=== PATIENT | male | born 2000 | race Caucasian/White ===

== ENCOUNTER 2018-03-22 18:02 | Emergency (ER) | payer OTHER ==
--- NOTE | 2018-03-22 18:06 | PDOC ---
History of Present Illness - General History Source: Patient Exam Limitations: No Limitations - History of Present Illness Initial Comments: 03/22/18 18:38 The patient is a 17 year old male with no significant past medical history who presents to the ED with right knee injury after playing basketball an hour and a half ago. He states he jumped in the air and landed with all of his weight onto his right leg, causing it to twist. Since then his knee has been jammed and stuck in a bent position with pain upon ambulation or movement. The patient states this has occurred a few times in the past where he can unlock his knee by stretching, but this time it has remained stuck. He denies any loss of sensation or tingling. Denies any fever or chills. <Ban Guajardo - Last Filed: 03/22/18 18:38> <Isaiah Novoa - Last Filed: 03/22/18 18:52> - General Chief Complaint: Injury Stated Complaint: RIGHT KNEE INJURY PLAYING BASKETBALL Time Seen by Provider: 03/22/18 18:05 Past History <Ban Guajardo - Last Filed: 03/22/18 18:38> <Isaiah Novoa - Last Filed: 03/22/18 18:52> - Past Medical History Allergies/Adverse Reactions: Allergies Allergy/AdvReac Type Severity Reaction Status Date / Time wool Allergy Intermediate Itching Verified 03/22/18 18:04 Home Medications: Ambulatory Orders NK [No Known Home Medication] 03/22/18 Review of Systems - Review of Systems Able to Perform ROS?: Yes Comments:: 03/22/18 18:38 CONSTITUTIONAL: Absent: fever, no chills, no fatigue EYES: Absent: visual changes ENT: Absent: ear pain, no sore throat CARDIOVASCULAR: Absent: chest pain, no palpitations RESPIRATORY: Absent: cough, no SOB GI: Absent: abdominal pain, no nausea, no vomiting, no constipation, no diarrhea GENITOURINARY: Absent: dysuria, no frequency, no hematuria MUSKULOSKELETAL: Present: right knee pain Absent: back pain SKIN: Absent: rash NEURO: Absent: headache All Other Systems: Reviewed and Negative <Ban Guajardo - Last Filed: 03/22/18 18:38> *Physical Exam - Vital Signs Last Vital Signs Temp Pulse Resp BP Pulse Ox 98 F 85 16 130/65 100 03/22/18 18:04 03/22/18 18:04 03/22/18 18:04 03/22/18 18:04 03/22/18 18:04 - Physical Exam Comments: 03/22/18 18:38 GENERAL: Well-appearing, well-nourished. No apparent distress. HEENT: Normocephalic, atraumatic. PERRL, EOM intact. CARDIOVASCULAR: Normal S1, S2. Regular rate and rhythm. PULMONARY: Clear to auscultation bilaterally. ABDOMEN: Soft, non-distended, non-tender. EXTREMITIES: Right knee shows no swelling, no effusion, no deform, no pain over patellar tendon. No stress tenderness of MCL, no laxity Karoline test positive- Exam lacks a firm endpoint and there is considerable laxity compared to other side. Distal pulses full and symmetric. Full ROM, mild discomfort with full extension. Rest of lower leg is w/o visible or palpable trauma SKIN: Warm, dry. No rash NEUROLOGICAL: No focal neurological deficits. <Ban Guajardo - Last Filed: 03/22/18 18:38> Medical Decision Making - Medical Decision Making 03/22/18 18:50 X-rays negative Suspect ligament injury, probably ACL, but not a complete tear. There is no swelling or effusion. However, Karoline test laxatives firm endpoint. This could be chronic, since the patient gives a history of minor knee injuries on this side in the past. Knee immobilizer applied. Adequately ambulatory but complains of increased knee pain with weightbearing.. No distal numbness tingling or pain in the foot. Crutches were given and he is instructed to follow-up with orthopedist. Discharge adequately ambulatory with his mother to follow-up as directed <Isaiah Novoa - Last Filed: 03/22/18 18:52> *DC/Admit/Observation/Transfer - Attestations Scribe Attestion: 03/22/18 18:41 Documentation prepared by Ban Guajardo, acting as medical registrar for Isaiah Nagel MD. <Ban Guajardo - Last Filed: 03/22/18 18:38> - Discharge Dispostion Decision to Admit order: No <Isaiah Novoa - Last Filed: 03/22/18 18:52> Diagnosis at time of Disposition: Knee sprain Qualifiers: Encounter type: initial encounter Involved ligament of knee: unspecified ligament Laterality: right Qualified Code(s): S83.91XA - Sprain of unspecified site of right knee, initial encounter - Discharge Dispostion Disposition: HOME Condition at time of disposition: Stable - Referrals Referrals: Pedro Vidal MD [Staff Physician] - 3 days - Patient Instructions Printed Discharge Instructions: DI for Knee Sprain, How to Use a Knee Immobilizer Additional Instructions: Rest ice and elevate Advil 3 tablets 3 times daily. Use crutches for 1-2 days, then knee immobilizer and maintain light activity See orthopedist for recheck in 3-5 days, for further evaluation and treatment. - Post Discharge Activity Forms/Work/School Notes: Back to Work
[2018-03-22 18:13] VITALS: BP 130/65; PULSE 85; TEMP 98; BMI 24.4
== END 2018-03-22 18:54 | disposition home or self-care (01) ==
LOC: EDSEX → FER 18:02
PROC: 2W3QX1Z Immobilization of Right Lower Leg using Splint (ICD-10-PCS; principal; 2018-03-22)
DX: S83.91XA Sprain of unspecified site of right knee, initial encounter (principal); X58.XXXA Exposure to other specified factors, initial encounter; Y93.67 Activity, basketball; Y92.310 Basketball court as the place of occurrence of the external cause
CPT/HCPCS: 73560-TC-RT-FY; 99282-25

== ENCOUNTER 2019-04-11 15:04 | Emergency (ER) | payer OTHER | END 2019-04-11 17:40 | disposition home or self-care (01) | LOC: FER 15:04 ==